=== PATIENT | female | born 1995 | race Caucasian/White ===

== ENCOUNTER 2021-05-10 12:21 | Emergency (ER) | payer MEDICAID ==
[~2021-05-10] VITALS: Ht 157.5 cm; Wt 68.0 kg
[2021-05-10] MEDS ORDERED: SODIUM CHLORIDE 0.9% 1,000 ML IV ONE (12:30)
[2021-05-10 13:23] LABS: HEMATOCRIT. 38.8 % (36.0-48.0); HEMOGLOBIN. 12.8 g/dL (12.0-16.0); MEAN CORPUSCULAR HEMOGLOBIN 30.1 pg (28.0-32.0); MEAN CORPUSCULAR VOLUME 91.7 fL (81.0-99.0); MEAN PLATELET VOLUME 9.1 fl (7.4-10.4); PLATELET 144 x1000/uL (130-400); RED BLOOD CELL COUNT 4.23 mill/uL (4.2-5.4); RED CELL DISTRIBUTION WIDTH 13.4 % (11.6-14.6)
[2021-05-10 13:29] LABS: CHLORIDE 108 mEq/L (98-107)
[2021-05-10 13:34] LABS: ETHANOL BLOOD < 10 mg/dL
[2021-05-10 13:37] LABS: HCG SCREEN NEGATIVE
[2021-05-10 14:00] LABS: PLATELET ESTIMATE NORMAL
[2021-05-10 15:26] LABS: CLARITY URINE CLEAR (CLEAR); COLOR URINE YELLOW (YELLOW); KETONES URINE NEGATIVE (NEGATIVE); LEUKOCYTE ESTERASE URINE NEGATIVE (NEGATIVE); NITRITE URINE NEGATIVE (NEGATIVE); OCCULT BLOOD URINE NEGATIVE (NEGATIVE); PH URINE 5.5 (4.5-8.0); PROTEIN URINE NEGATIVE (NEGATIVE); SPECIFIC GRAVITY URINE 1.009 (1.005-1.030); UROBILINOGEN URINE 0.2 E.U./dL (0.2-1.0)
[2021-05-10 15:46] LABS: *AMPHETAMINES SCREEN URINE NEGATIVE (NEGATIVE)
[2021-05-10 15:47] LABS: *BARBITURATES SCREEN URINE NEGATIVE (NEGATIVE); *BENZODIAZEPINES SCREEN URINE NEGATIVE (NEGATIVE); *COCAINE SCREEN URINE NEGATIVE (NEGATIVE); CANNABINOID URINE SCREEN NEGATIVE (NEGATIVE); OPIATES URINE SCREEN NEGATIVE (NEGATIVE); PHENCYCLIDINE URINE SCREEN NEGATIVE (NEGATIVE)
[2021-05-10 15:49] LABS: METHADONE URINE SCREEN NEGATIVE (NEGATIVE)
[2021-05-10] MEDS ORDERED: ONDANSETRON HCL 4MG/2ML INJ IV ONE (17:15)
[2021-05-11] MEDS ORDERED: TOPUD PO (12:08)
[2021-05-11 13:24] VITALS: BP 102/68
== END 2021-05-11 13:32 | disposition home or self-care (01) ==
LOC: ER 12:42
DX: U07.1 COVID-19 (principal); F32.9 Major depressive disorder, single episode, unspecified; T39.311A Poisoning by propionic acid derivatives, accidental (unintentional), initial encounter; Y92.9 Unspecified place or not applicable; R45.851 Suicidal ideations; R07.9 Chest pain, unspecified; R10.9 Unspecified abdominal pain; R41.82 Altered mental status, unspecified; J98.01 Acute bronchospasm
CPT/HCPCS: 36415; 80053; 80305; 80307; 80320; 80329; 81003; 82962; 84703; 85025; 96361; 96374; 99285; C9803; J2405; J7030; J7040; U0003; U0005; Z7610; G0480